=== PATIENT | male | born 1975 | race Two or more races ===

== ENCOUNTER 2018-09-01 05:50 | Emergency (ER) | payer OTHER ==
--- NOTE | 2018-09-01 06:08 | EDM.PDOC ---
ED HPI GENERAL MEDICAL PROBLEM - General Chief Complaint: Headache Stated Complaint: HEADACHE Time Seen by Provider: 09/01/18 06:08 Source of Information: Reports: Patient - History of Present Illness INITIAL COMMENTS - FREE TEXT/NARRATIVE: HISTORY AND PHYSICAL: History of present illness: [Patient presents with headache 4 out of 10 diffuse headache described as a dull ache persistent for 3 days notably the patient is quit smoking and stopped caffeine intake 4 days prior No fever nausea vomiting diarrhea constipation chest pain shortness breath headache dizziness palpitation no bowel or urine symptoms at current Prior history of headache ] Review of systems: As per history of present illness and below otherwise all systems reviewed and negative. Past medical history: As per history of present illness and as reviewed below otherwise noncontributory. Surgical history: As per history of present illness and as reviewed below otherwise noncontributory. Social history: No reported history of drug or alcohol abuse. Family history: As per history of present illness and as reviewed below otherwise noncontributory. Physical exam: HEENT: Atraumatic, normocephalic, pupils reactive, negative for conjunctival pallor or scleral icterus, mucous membranes moist, throat clear, neck supple, nontender, trachea midline. Lungs: Clear to auscultation, breath sounds equal bilaterally, chest nontender. Heart: S1S2, regular, negative for clicks, rubs, or JVD. Abdomen: Soft, nondistended, nontender. Negative for masses or hepatosplenomegaly. Negative for costovertebral tenderness. Pelvis: Stable nontender. Genitourinary: Deferred. Rectal: Deferred. Extremities: Atraumatic, negative for cords or calf pain. Neurovascular unremarkable. Neuro: Awake, alert, oriented. Cranial nerves II through XII unremarkable. Cerebellum unremarkable. Motor and sensory unremarkable throughout. Exam nonfocal. Diagnostics: [Influenza Patient offered head CT]Gianna declined Therapeutics: [] normal saline Toradol Zofran Impression: [] headache recently stopped smoking Recently stopped all caffeine intake likely withdrawal from above Definitive disposition and diagnosis as appropriate pending reevaluation and review of above. headache Pain Score (Numeric/FACES): 8 - Related Data Allergies Allergy/AdvReac Type Severity Reaction Status Date / Time No Known Allergies Allergy Verified 09/01/18 05:55 Home Meds: Home Meds . [No Known Home Meds] 06/06/18 [History] Past Medical History HEENT History: Reports: None Cardiovascular History: Reports: None Respiratory History: Reports: None Gastrointestinal History: Reports: None Genitourinary History: Reports: None Musculoskeletal History: Reports: Arthritis Neurological History: Reports: None Psychiatric History: Reports: None Endocrine/Metabolic History: Reports: None Hematologic History: Reports: None Immunologic History: Reports: None Oncologic (Cancer) History: Reports: None Dermatologic History: Reports: None - Infectious Disease History Infectious Disease History: Reports: None - Past Surgical History Head Surgeries/Procedures: Reports: None HEENT Surgical History: Reports: None Cardiovascular Surgical History: Reports: None Respiratory Surgical History: Reports: None GI Surgical History: Reports: Colonoscopy Male Surgical History: Reports: None Endocrine Surgical History: Reports: None Neurological Surgical History: Reports: None Musculoskeletal Surgical History: Reports: None Oncologic Surgical History: Reports: None Dermatological Surgical History: Reports: None Social & Family History - Family History Family Medical History: Noncontributory - Tobacco Use Smoking Status *Q: Current Some Day Smoker Years of Tobacco use: 30 Packs/Tins Daily: 1.5 - Caffeine Use Caffeine Use: Reports: Soda - Recreational Drug Use Recreational Drug Use: Yes Recreational Drug Type: Reports: Marijuana/Hashish ED ROS GENERAL - Review of Systems Review Of Systems: See Below ED EXAM, GENERAL - Physical Exam Exam: See Below Course - Vital Signs Last Recorded V/S: Last Vital Signs Temp 98.1 F 09/01/18 05:55 Pulse 78 09/01/18 05:55 Resp 18 09/01/18 05:55 BP 147/84 H 09/01/18 05:55 Pulse Ox 94 L 09/01/18 05:55 - Orders/Labs/Meds Orders: Active Orders 24 hr Category Date Time Status INFLUENZA A+B AG SCREEN [RM] Stat Lab 09/01/18 06:12 Received Sodium Chloride 0.9% [Normal Saline] 1,000 ml Med 09/01/18 06:11 Active IV STAT Medication Orders Sodium Chloride (Normal Saline) 1,000 mls @ 999 mls/hr IV STAT ONE Stop: 09/01/18 07:11 Meds: Medications Generic Name Dose Route Start Last Admin Trade Name Freq PRN Reason Stop Dose Admin Sodium Chloride 1,000 mls @ 999 mls/hr 09/01/18 06:11 Normal Saline IV 09/01/18 07:11 STAT ONE Discontinued Medications Generic Name Dose Route Start Last Admin Trade Name Louis PRN Reason Stop Dose Admin Ketorolac Tromethamine 30 mg 09/01/18 06:11 Toradol IVPUSH 09/01/18 06:12 ONETIME ONE Ondansetron HCl 8 mg 09/01/18 06:11 Zofran IVPUSH 09/01/18 06:12 ONETIME ONE Departure - Departure Time of Disposition: 06:25 Disposition: Home, Self-Care 01 Condition: Good Clinical Impression: Headache - Discharge Information Referrals: PCP,None [Primary Care Provider] - Forms: ED Department Discharge Additional Instructions: The following information is given to patients seen in the emergency department who are being discharged to home. This information is to outline your options for follow-up care. We provide all patients seen in our emergency department with a follow-up referral. The need for follow-up, as well as the timing and circumstances, are variable depending upon the specifics of your emergency department visit. If you don't have a primary care physician on staff, we will provide you with a referral. We always advise you to contact your personal physician following an emergency department visit to inform them of the circumstance of the visit and for follow-up with them and/or the need for any referrals to a consulting specialist. The emergency department will also refer you to a specialist when appropriate. This referral assures that you have the opportunity for follow-up care with a specialist. All of these measure are taken in an effort to provide you with optimal care, which includes your follow-up. Under all circumstances we always encourage you to contact your private physician who remains a resource for coordinating your care. When calling for follow-up care, please make the office aware that this follow-up is from your recent emergency room visit. If for any reason you are refused follow-up, please contact the [facility] emergency department at and asked to speak to the emergency department charge nurse. - My Orders Last 24 Hours: My Active Orders 09/01/18 06:11 Sodium Chloride 0.9% [Normal Saline] 1,000 ml IV STAT 09/01/18 06:12 INFLUENZA A+B AG SCREEN [RM] Stat - Assessment/Plan Last 24 Hours: My Active Orders 09/01/18 06:11 Sodium Chloride 0.9% [Normal Saline] 1,000 ml IV STAT 09/01/18 06:12 INFLUENZA A+B AG SCREEN [RM] Stat
[2018-09-01] MEDS ORDERED: Sodium Chloride 0.9% 1,000 ML IV ONE (06:11)
[2018-09-01] MEDS ORDERED: Ondansetron 4 MG/2 ML SDV IVPUSH ONE (06:11)
[2018-09-01] MEDS ORDERED: Ketorolac 30 MG/ML SDV IVPUSH ONE (06:11)
== END 2018-09-01 07:45 | disposition home or self-care (01) ==
LOC: MW.ED 05:50
DX: R51 Headache (principal); F17.210 Nicotine dependence, cigarettes, uncomplicated
CPT/HCPCS: 87804; 96361; 96374; 96375; 99284; J1885; J2405; J7040

== ENCOUNTER 2018-09-02 05:35 | Emergency (ER) | payer OTHER ==
[2018-09-02] MEDS ORDERED: Sodium Chloride 0.9% 1,000 ML IV ONE (05:39)
[2018-09-02] MEDS ORDERED: SUMAtriptan 50 MG Tab PO ONE (05:42)
--- NOTE | 2018-09-02 05:42 | EDM.PDOC ---
ED HPI GENERAL MEDICAL PROBLEM - General Stated Complaint: PERSISTENT HEADACHE Time Seen by Provider: 09/02/18 05:41 Source of Information: Reports: Patient - History of Present Illness INITIAL COMMENTS - FREE TEXT/NARRATIVE: HISTORY AND PHYSICAL: History of present illness: [Patient presents with continued headache] 5 out of 10 diffuse Was seen earlier in the day with the last 24 hours attributing headache to nicotine and caffeine withdraw as he had quit both substances on Wednesday 4 days prior No fever nausea vomiting chills sweats Review of systems: As per history of present illness and below otherwise all systems reviewed and negative. Past medical history: As per history of present illness and as reviewed below otherwise noncontributory. Surgical history: As per history of present illness and as reviewed below otherwise noncontributory. Social history: No reported history of drug or alcohol abuse. Family history: As per history of present illness and as reviewed below otherwise noncontributory. Physical exam: HEENT: Atraumatic, normocephalic, pupils reactive, negative for conjunctival pallor or scleral icterus, mucous membranes moist, throat clear, neck supple, nontender, trachea midline. Bilateral mastoid tenderness as well as right maxillary sinus tenderness Lungs: Clear to auscultation, breath sounds equal bilaterally, chest nontender. Heart: S1S2, regular, negative for clicks, rubs, or JVD. Abdomen: Soft, nondistended, nontender. Negative for masses or hepatosplenomegaly. Negative for costovertebral tenderness. Pelvis: Stable nontender. Genitourinary: Deferred. Rectal: Deferred. Extremities: Atraumatic, negative for cords or calf pain. Neurovascular unremarkable. Neuro: Awake, alert, oriented. Cranial nerves II through XII unremarkable. Cerebellum unremarkable. Motor and sensory unremarkable throughout. Exam nonfocal. Diagnostics: []CBC CMP UA Head CT no contrast Therapeutics: [] normal saline Imitrex Demerol 25 mg IV Augmentin 875 per 125 by mouth twice a day #20 no refill ENT referral Impression: [Sinusitis Mild mastoid tenderness with inflammatory changes on CT Recent cessation of nicotine and caffeine Headache ] Definitive disposition and diagnosis as appropriate pending reevaluation and review of above. headache Pain Score (Numeric/FACES): 9 - Related Data Allergies Allergy/AdvReac Type Severity Reaction Status Date / Time No Known Allergies Allergy Verified 09/01/18 05:55 Home Meds: Home Meds . [No Known Home Meds] 06/06/18 [History] Past Medical History HEENT History: Reports: None Cardiovascular History: Reports: None Respiratory History: Reports: None Gastrointestinal History: Reports: None Genitourinary History: Reports: None Musculoskeletal History: Reports: Arthritis Neurological History: Reports: None Psychiatric History: Reports: None Endocrine/Metabolic History: Reports: None Hematologic History: Reports: None Immunologic History: Reports: None Oncologic (Cancer) History: Reports: None Dermatologic History: Reports: None - Infectious Disease History Infectious Disease History: Reports: None - Past Surgical History Head Surgeries/Procedures: Reports: None HEENT Surgical History: Reports: None Cardiovascular Surgical History: Reports: None Respiratory Surgical History: Reports: None GI Surgical History: Reports: Colonoscopy Male Surgical History: Reports: None Endocrine Surgical History: Reports: None Neurological Surgical History: Reports: None Musculoskeletal Surgical History: Reports: None Oncologic Surgical History: Reports: None Dermatological Surgical History: Reports: None Social & Family History - Family History Family Medical History: Noncontributory - Caffeine Use Caffeine Use: Reports: Soda ED ROS GENERAL - Review of Systems Review Of Systems: See Below ED EXAM, GENERAL - Physical Exam Exam: See Below Course - Vital Signs Last Recorded V/S: Last Vital Signs Temp 98.6 F 09/02/18 05:52 Pulse 75 09/02/18 05:52 Resp 18 09/02/18 05:52 BP 143/89 H 09/02/18 06:23 Pulse Ox 91 L 09/02/18 05:52 - Orders/Labs/Meds Labs: Laboratory Tests 09/02/18 09/02/18 09/02/18 Range/Units 05:53 05:53 05:53 WBC 5.44 (4.0-11.0) K/uL RBC 4.46 L (4.50-5.90) M/uL Hgb 13.7 (13.0-17.0) g/dL Hct 40.7 (38.0-50.0) % MCV 91.3 (80.0-98.0) fL MCH 30.7 (27.0-32.0) pg MCHC 33.7 (31.0-37.0) g/dL RDW Std Deviation 43.4 (28.0-62.0) fl RDW Coeff of Abdiel 13 (11.0-15.0) % Plt Count 154 (150-400) K/uL MPV 9.70 (7.40-12.00) fL Neut % (Auto) 56.9 (48.0-80.0) % Lymph % (Auto) 34.6 (16.0-40.0) % [place] % (Auto) 8.3 (0.0-15.0) % Eos % (Auto) 0.0 (0.0-7.0) % Baso % (Auto) 0.2 (0.0-1.5) % Neut # (Auto) 3.1 (1.4-5.7) K/uL Lymph # (Auto) 1.9 (0.6-2.4) K/uL [place] # (Auto) 0.5 (0.0-0.8) K/uL Eos # (Auto) 0.0 (0.0-0.7) K/uL Baso # (Auto) 0.0 (0.0-0.1) K/uL Nucleated RBC % 0.0 /100WBC Nucleated RBCs # 0 K/uL Sodium 137 (136-148) mmol/L Potassium 3.4 L (3.5-5.1) mmol/L Chloride 103 (98-107) mmol/L Carbon Dioxide 27.9 (21.0-32.0) mmol/L BUN 7 (7.0-18.0) mg/dL Creatinine 1.0 (0.8-1.3) mg/dL Est Cr Clr Drug Dosing 100.38 mL/min Estimated GFR (MDRD) > 60.0 ml/min Glucose 114 H (74-106) mg/dL Calcium 8.9 (8.5-10.1) mg/dL Total Bilirubin 0.3 (0.2-1.0) mg/dL AST 42 H (15-37) IU/L ALT 40 (14-63) IU/L Alkaline Phosphatase 74 (46-116) U/L Total Protein 7.0 (6.4-8.2) g/dL Albumin 3.2 L (3.4-5.0) g/dL Globulin 3.8 (2.6-4.0) g/dL Albumin/Globulin Ratio 0.8 L (0.9-1.6) Urine Color DARK YELLOW Urine Appearance CLEAR Urine pH 6.0 (5.0-8.0) Ur Specific [place] 1.025 (1.001-1.035) Urine Protein NEGATIVE (NEGATIVE) mg/dL Urine Glucose (UA) NEGATIVE (NEGATIVE) mg/dL Urine Ketones NEGATIVE (NEGATIVE) mg/dL Urine Occult Blood TRACE-LYSED H (NEGATIVE) Urine Nitrite NEGATIVE (NEGATIVE) Urine Bilirubin NEGATIVE (NEGATIVE) Urine Urobilinogen 2.0 H (<2.0) EU/dL Ur Leukocyte Esterase NEGATIVE (NEGATIVE) Urine RBC 2-4 (0-2/HPF) Urine WBC 0-1 (0-5/HPF) Ur Epithelial Cells RARE (NONE-FEW) Urine Bacteria RARE (NEGATIVE) Meds: Medications Discontinued Medications Generic Name Dose Route Start Last Admin Trade Name Freq PRN Reason Stop Dose Admin Amoxicillin/Clavulanate Potassium 1 tab 09/02/18 06:39 Augmentin 875 Mg/125 Mg PO 09/02/18 06:40 ONETIME ONE Sodium Chloride 1,000 mls @ 999 mls/hr 09/02/18 05:39 09/02/18 06:07 Normal Saline IV 09/02/18 06:39 999 mls/hr STAT ONE Administration Meperidine HCl 25 mg 09/02/18 06:36 Demerol IVPUSH 09/02/18 06:37 ONETIME ONE Sumatriptan Succinate 50 mg 09/02/18 05:42 09/02/18 06:07 Imitrex PO 09/02/18 05:43 50 mg ONETIME ONE Administration Departure - Departure Time of Disposition: 06:42 Disposition: Home, Self-Care 01 Condition: Good Clinical Impression: Sinusitis, Headache - Discharge Information Referrals: PCP,None [Primary Care Provider] - Additional Instructions: Medication as prescribed Return if symptoms persist or worsen Follow-up with, ER referral for follow-up within the next week--RE:mild mastoid tenderness with inflammatory changes on CT Follow-up with primary care as needed in the interim return to emergency room if symptoms persist or worsen or new concerning symptoms develop [facility] [address] [place] [id number] The following information is given to patients seen in the emergency department who are being discharged to home. This information is to outline your options for follow-up care. We provide all patients seen in our emergency department with a follow-up referral. The need for follow-up, as well as the timing and circumstances, are variable depending upon the specifics of your emergency department visit. If you don't have a primary care physician on staff, we will provide you with a referral. We always advise you to contact your personal physician following an emergency department visit to inform them of the circumstance of the visit and for follow-up with them and/or the need for any referrals to a consulting specialist. The emergency department will also refer you to a specialist when appropriate. This referral assures that you have the opportunity for follow-up care with a specialist. All of these measure are taken in an effort to provide you with optimal care, which includes your follow-up. Under all circumstances we always encourage you to contact your private physician who remains a resource for coordinating your care. When calling for follow-up care, please make the office aware that this follow-up is from your recent emergency room visit. If for any reason you are refused follow-up, please contact the [facility] emergency department at and asked to speak to the emergency department charge nurse.
[2018-09-02 06:21] LABS: CHLORIDE,CL 103 mmol/L (98-107); SODIUM,NA 137 mmol/L (136-148)
--- NOTE | 2018-09-02 06:32 | CT ---
INDICATION : Headache TECHNIQUE : Noncontrast CT scan of brain. FINDINGS: No acute intra or extra-axial hemorrhage. The ventricles and sulci are normal size, shape and configuration. No visualized intracranial mass or additional abnormal attenuation. Bony calvarium is normal. Symmetric bony sclerosis involving the mastoid bones. Small amount of fluid noted within the right middle ear cavity ear near the ossicles. IMPRESSION : No significant intracranial radiographic abnormality. Incidental symmetric mastoid sclerosis which is likely inflammatory with some possible inflammatory fluid density within the right middle ear cavity. Correlate with symptoms. Please note that all CT scans at this facility use dose modulation, iterative reconstruction, and/or weight-based dosing when appropriate to reduce radiation dose to as low as reasonably achievable. Dictated by Jose Mathis MD @ Sep 02 2018 6:26AM Signed by Dr. Jose Mathis @ Sep 02 2018 6:31AM
[2018-09-02] MEDS ORDERED: Meperidine PF 25 MG/ML Syringe IVPUSH ONE (06:36)
[2018-09-02] MEDS ORDERED: Amoxicillin/Clavulanate K 875-125 MG Tab PO ONE (06:39)
== END 2018-09-02 07:46 | disposition home or self-care (01) ==
LOC: MW.ED 05:35
DX: J32.9 Chronic sinusitis, unspecified (principal)
CPT/HCPCS: 36415; 70450; 80053; 81001; 85025; 96361; 96374; 99284; A9270; J2175; J7040

== ENCOUNTER 2018-09-07 09:52 | Emergency (ER) | payer OTHER ==
[2018-09-07] MEDS ORDERED: Albuterol/Ipratropium 3.0-0.5 MG/3 ML Neb Soln NEB ONE (10:18)
[2018-09-07] MEDS ORDERED: predniSONE 20 MG Tab PO ONE (10:34)
--- NOTE | 2018-09-07 11:35 | EDM.PDOC ---
ED HPI GENERAL MEDICAL PROBLEM - General Chief Complaint: Respiratory Problem Stated Complaint: COUGH Time Seen by Provider: 09/07/18 09:55 - History of Present Illness INITIAL COMMENTS - FREE TEXT/NARRATIVE: HISTORY AND PHYSICAL: History of present illness: Patient 43-year-old white male was recently seen is currently on antibiotics for sinusitis presents now with concern of mild wheezing and cough he denies shortness of breath nausea vomiting fever chills or other complaints he did have a recent influenza screen was negative Review of systems: As per history of present illness and below otherwise all systems reviewed and negative. Past medical history: As per history of present illness and as reviewed below otherwise noncontributory. Surgical history: As per history of present illness and as reviewed below otherwise noncontributory. Social history: No reported history of drug or alcohol abuse. Family history: As per history of present illness and as reviewed below otherwise noncontributory. Physical exam: HEENT: Atraumatic, normocephalic, pupils reactive, negative for conjunctival pallor or scleral icterus, mucous membranes moist, throat clear, neck supple, nontender, trachea midline. Lungs: Mild rear end expiratory wheezing, breath sounds equal bilaterally, chest nontender. Heart: S1S2, regular, negative for clicks, rubs, or JVD. Abdomen: Soft, nondistended, nontender. Negative for masses or hepatosplenomegaly. Negative for costovertebral tenderness. Pelvis: Stable nontender. Genitourinary: Deferred. Rectal: Deferred. Extremities: Atraumatic, negative for cords or calf pain. Neurovascular unremarkable. Neuro: Awake, alert, oriented. Cranial nerves II through XII unremarkable. Cerebellum unremarkable. Motor and sensory unremarkable throughout. Exam nonfocal. Diagnostics: Chest x-ray Therapeutics: Albuterol ipratropium nebulizer prednisone 60 mg by mouth Impression: #1 reactive airway disease she sinusitis Definitive disposition and diagnosis as appropriate pending reevaluation and review of above. - Related Data Allergies Allergy/AdvReac Type Severity Reaction Status Date / Time No Known Allergies Allergy Verified 09/07/18 10:05 Home Meds: Home Meds Non-Formulary Medication [NF Drug] 1 tab PO BID 09/07/18 [History] Past Medical History - Past Health History Medical/Surgical History: Denies Medical/Surgical History HEENT History: Reports: None Cardiovascular History: Reports: None Respiratory History: Reports: None Gastrointestinal History: Reports: None, Irritable Bowel Syndrome Genitourinary History: Reports: None Musculoskeletal History: Reports: Arthritis Neurological History: Reports: None Psychiatric History: Reports: None Endocrine/Metabolic History: Reports: None Hematologic History: Reports: None Immunologic History: Reports: None Oncologic (Cancer) History: Reports: None Dermatologic History: Reports: None - Infectious Disease History Infectious Disease History: Reports: Chicken Pox - Past Surgical History Head Surgeries/Procedures: Reports: None HEENT Surgical History: Reports: None Cardiovascular Surgical History: Reports: None Respiratory Surgical History: Reports: None GI Surgical History: Reports: Colonoscopy Male Surgical History: Reports: None Endocrine Surgical History: Reports: None Neurological Surgical History: Reports: None Musculoskeletal Surgical History: Reports: None Oncologic Surgical History: Reports: None Dermatological Surgical History: Reports: None Social & Family History - Family History Family Medical History: Noncontributory - Tobacco Use Smoking Status *Q: Current Every Day Smoker Years of Tobacco use: 30 Packs/Tins Daily: 1.5 - Caffeine Use Caffeine Use: Reports: Soda - Recreational Drug Use Recreational Drug Use: Yes Recreational Drug Type: Reports: Marijuana/Hashish Other Recreational Drug Type: uses daily Recreational Drug Use Frequency: Daily ED ROS GENERAL - Review of Systems Review Of Systems: ROS reveals no pertinent complaints other than HPI. ED EXAM, GENERAL - Physical Exam Exam: See Below (See dictation) Course - Vital Signs Last Recorded V/S: Last Vital Signs Temp 36.6 C 09/07/18 10:01 Pulse 72 09/07/18 10:01 Resp 24 H 09/07/18 10:01 BP 161/88 H 09/07/18 10:01 Pulse Ox 97 09/07/18 10:01 - Orders/Labs/Meds Orders: Active Orders 24 hr Category Date Time Status RT Aerosol Therapy [RC] ASDIRECTED Care 09/07/18 10:18 Active Chest 2V [CR] Stat Exams 09/07/18 10:27 Taken Meds: Medications Discontinued Medications Generic Name Dose Route Start Last Admin Trade Name Freq PRN Reason Stop Dose Admin Albuterol/Ipratropium 3 ml 09/07/18 10:18 09/07/18 10:27 Duoneb 3.0-0.5 Mg/3 Ml NEB 09/07/18 10:19 3 ml ONETIME ONE Administration Prednisone 60 mg 09/07/18 10:34 09/07/18 10:38 Prednisone PO 09/07/18 10:35 60 mg ONETIME ONE Administration Departure - Departure Time of Disposition: 11:34 Disposition: Home, Self-Care 01 Condition: Good Clinical Impression: Reactive airway disease, History of sinusitis - Discharge Information Referrals: PCP,None [Primary Care Provider] - Additional Instructions: The following information is given to patients seen in the emergency department who are being discharged to home. This information is to outline your options for follow-up care. We provide all patients seen in our emergency department with a follow-up referral. The need for follow-up, as well as the timing and circumstances, are variable depending upon the specifics of your emergency department visit. If you don't have a primary care physician on staff, we will provide you with a referral. We always advise you to contact your personal physician following an emergency department visit to inform them of the circumstance of the visit and for follow-up with them and/or the need for any referrals to a consulting specialist. The emergency department will also refer you to a specialist when appropriate. This referral assures that you have the opportunity for followup care with a specialist. All of these measure are taken in an effort to provide you with optimal care, which includes your followup. Under all circumstances we always encourage you to contact your private physician who remains a resource for coordinating your care. When calling for followup care, please make the office aware that this follow-up is from your recent emergency room visit. If for any reason you are refused follow-up, please contact the [facility] emergency department at and asked to speak to the emergency department charge nurse. Medrol albuterol as prescribed follow-up primary medical doctor as needed as discussed and return as needed as discussed - My Orders Last 24 Hours: My Active Orders 09/07/18 10:18 RT Aerosol Therapy [RC] ASDIRECTED 09/07/18 10:27 Chest 2V [CR] Stat - Assessment/Plan Last 24 Hours: My Active Orders 09/07/18 10:18 RT Aerosol Therapy [RC] ASDIRECTED 09/07/18 10:27 Chest 2V [CR] Stat
--- NOTE | 2018-09-07 12:25 | CR ---
EXAMINATION: Two-view chest (PA and Lateral views). HISTORY: Shortness of breath. FINDINGS: The trachea is midline. The cardiomediastinal silhouette is within normal limits. No pulmonary infiltrates, effusions or pneumothorax. Mild interstitial prominence. Osseous structures appear unremarkable. IMPRESSION: No acute cardiopulmonary process.
== END 2018-09-07 12:00 | disposition home or self-care (01) ==
LOC: MW.ED 09:52
DX: J45.909 Unspecified asthma, uncomplicated (principal); Z87.09 Personal history of other diseases of the respiratory system
CPT/HCPCS: 71046; 99283; A9270; J7620-GY

== ENCOUNTER 2020-04-02 15:45 | Emergency (ER) | payer OTHER ==
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
--- NOTE | 2020-04-02 17:41 | CT ---
Head CT Technique: Multiple axial sections through the brain were obtained. Intravenous contrast was not utilized. Comparison: No prior intracranial imaging is available. Findings: Ventricles along with basal cisterns and sulci over the convexities appear within normal limits for the patient's age. No abnormal parenchymal densities are seen. No evidence of intracranial hemorrhage. No midline shift or mass-effect is seen. Bone window settings were reviewed. Mild mucosal thickening is seen within the ethmoid sinuses. No acute calvarial finding is appreciated. Impression: 1. No acute intracranial abnormality is appreciated. Diagnostic code #1 This report was dictated in MDT
--- NOTE | 2020-04-02 17:47 | CT ---
CT chest Technique: Multiple axial sections through the chest were obtained. Intravenous contrast was utilized. Reconstructed coronal and sagittal images were obtained. Findings: Thoracic aorta shows no aneurysm. Mediastinum shows small lymph nodes without adenopathy. No mediastinal hematoma is seen. Mild coronary artery calcification is seen. No pericardial thickening is seen. Cyst is noted within the left kidney. Lungs are clear with no acute parenchymal change. No pleural effusions are seen. No pneumothorax is identified. Bone window settings were reviewed which shows no discrete rib fracture or thoracic spine fracture. Sagittal views shows no discrete sternal fracture. Impression: 1. Nothing acute is appreciated on CT study of the chest. Diagnostic code #2 This report was dictated in MDT
--- NOTE | 2020-04-02 17:55 | CT ---
CT abdomen and pelvis Technique: Multiple axial sections were obtained from above the dome of the diaphragm inferiorly through the pubic symphysis. Intravenous contrast was utilized. No oral contrast has been given. Findings: Liver contains no focal abnormality. Spleen appears within normal limits. Adrenal glands show no nodule. Pancreas is within normal limits. Gallbladder contains no calcified gallstones. Kidneys show symmetric contrast enhancement. Both kidneys show small cortical cysts. Largest cyst is located within the left kidney and measures about 2.1 cm. Aorta shows no aneurysm. No retroperitoneal adenopathy or mesenteric abnormalities are seen. Appendix is seen which is normal. No pelvic mass is seen. No free fluid or inflammatory change is appreciated. Bone window settings were reviewed. Well-corticated bony densities are noted off the superior right hip which appear old. Lumbar spine shows no discrete fracture. No fracture is appreciated within the pelvis or hips. Impression: 1. Findings as noted above. 2. Nothing acute is seen on CT study of the abdomen and pelvis. Diagnostic code #2 This report was dictated in MDT
--- NOTE | 2020-04-02 18:03 | CT ---
CT cervical spine Technique: Multiple axial sections through the cervical spine were obtained from above the C1 and inferiorly to the top of T3. Reconstructed coronal and sagittal images were obtained. Findings: Vertebral bodies and posterior arches are intact. No fracture is appreciated. No bony central or bony neural foraminal stenosis is seen. No gross disc herniation is appreciated. Small detached spur is noted anterior to the C4-5 disc. Anterior osteophytes noted at C6-7. Ligamentum nuchal calcification is seen. No abnormal subluxation is seen. Impression: 1. Minimal degenerative change. 2. No acute fracture or subluxation is seen. Diagnostic code #2 This report was dictated in MDT
--- NOTE | 2020-04-02 18:26 | CT ---
CT thoracic spine Technique: Multiple axial sections through the thoracic spine were obtained. Reconstructed coronal and sagittal images were obtained. Comparison: No prior thoracic spine imaging is available. Findings: Mild scattered anterior osteophytes are noted as well as several levels of mild posterior osteophytes. Vertebral body heights are maintained. No fracture is appreciated. No bony central or bony neural foraminal stenosis is seen. No subluxation is appreciated. No gross disc herniation is appreciated. Impression: 1. Degenerative change as noted above. 2. Nothing acute is appreciated on CT study of the thoracic spine. Diagnostic code #2 This report was dictated in MDT
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
[2020-04-02] MEDS ORDERED: Iopamidol 755 MG/ML 500 ML Multipack Bottle IVPUSH STA (19:13)
== END 2020-04-02 19:00 | disposition home or self-care (01) ==
LOC: MW.ED 15:45
DX: R07.89 Other chest pain (principal); S00.01XA Abrasion of scalp, initial encounter; M25.532 Pain in left wrist; V89.2XXA Person injured in unspecified motor-vehicle accident, traffic, initial encounter
CPT/HCPCS: 70450; 71260; 72125; 74177; 99284; Q9967; 72128-26

== ENCOUNTER 2022-03-29 05:42 | Emergency (ER) | payer SELFPAY ==
[2022-03-29] MEDS ORDERED: Tetracaine HCl/PF 0.5% 4 ML Bottle EYELF ONE (05:51)
== END 2022-03-29 06:37 | disposition home or self-care (01) ==
LOC: MW.ED 05:42
DX: H57.89 Other specified disorders of eye and adnexa (principal); F17.210 Nicotine dependence, cigarettes, uncomplicated
CPT/HCPCS: 99283